=== PATIENT | female | born 1990 | race Caucasian/White ===

== ENCOUNTER 2017-09-20 19:23 | Emergency (ER) | payer OTHER ==
[~2017-09-20] VITALS: Ht 165.1 cm; Wt 59.0 kg
[~2017-09-20 19:23] MED LIST: NOHOMEMEDICATIONS
[2017-09-20 19:31] VITALS: BP 120/79
[2017-09-20] MEDS ORDERED: TYLENOL325 MG PO (19:34)
[2017-09-20] MEDS ORDERED: KEFLEX500 M1 PO (19:57)
== END 2017-09-20 20:10 | disposition home or self-care (01) ==
LOC: ER 19:23
DX: L73.9 Follicular disorder, unspecified (principal); Z48.01 Encounter for change or removal of surgical wound dressing; Z88.8 Allergy status to other drugs, medicaments and biological substances; Z88.6 Allergy status to analgesic agent